=== PATIENT | male | born 1985 | race Caucasian/White ===

== ENCOUNTER 2019-07-26 01:45 | Emergency (ER) | payer MEDICAID, OTHER ==
[~2019-07-26] VITALS: Ht 177.8 cm; Wt 90.9 kg
[~2019-07-26 01:45] MED LIST: LIB25C PO
[2019-07-26 01:47] VITALS: BP 167/80
[2019-07-26] MEDS ORDERED: tetanus & diphtheria toxoid (Td) vaccine 0.5ml IMVAC ONE (02:05)
[2019-07-26] MEDS ORDERED: proparacaine 0.5% ophthalmic drops 15ml EACHEYE ONE (02:10)
[2019-07-26] MEDS ORDERED: gentamicin 0.3% ophthalmic drops 5ML RIGHTEYE ONE (02:10)
[2019-07-26] MEDS ORDERED: GENT5DRO4 RIGHTEYE (02:11)
== END 2019-07-26 02:35 ==
LOC: ER 01:45
DX: S01.81XA Laceration without foreign body of other part of head, initial encounter (principal); S05.71XA Avulsion of right eye, initial encounter; G89.29 Other chronic pain; F32.9 Major depressive disorder, single episode, unspecified; V89.2XXA Person injured in unspecified motor-vehicle accident, traffic, initial encounter; F12.90 Cannabis use, unspecified, uncomplicated; F41.9 Anxiety disorder, unspecified; Z56.0 Unemployment, unspecified; Z72.89 Other problems related to lifestyle; Y92.89 Other specified places as the place of occurrence of the external cause; Y99.8 Other external cause status; Y93.89 Activity, other specified
CPT/HCPCS: 99282; 99283

== ENCOUNTER 2019-07-29 08:59 | Emergency (ER) | payer OTHER ==
[~2019-07-29] VITALS: Ht 177.8 cm; Wt 90.9 kg
[~2019-07-29 08:59] MED LIST changes: +GENT5DRO4 RIGHTEYE
[2019-07-29] MEDS ORDERED: proparacaine 0.5% ophthalmic drops 15ml EACHEYE ONE (09:30)
[2019-07-29] MEDS ORDERED: TETanus/Pertussis (Acell)/Diphther VAC/PF (Tdap-Adult) 0.5ml syringe IMVAC ONE (09:40)
[2019-07-29 10:17] VITALS: BP 119/88
== END 2019-07-29 10:21 ==
LOC: ER 09:00
DX: S01.112D Laceration without foreign body of left eyelid and periocular area, subsequent encounter (principal); S05.02XD Injury of conjunctiva and corneal abrasion without foreign body, left eye, subsequent encounter; G89.29 Other chronic pain; F41.9 Anxiety disorder, unspecified; F32.9 Major depressive disorder, single episode, unspecified; F12.90 Cannabis use, unspecified, uncomplicated; F10.99 Alcohol use, unspecified with unspecified alcohol-induced disorder; Z60.2 Problems related to living alone; Z56.0 Unemployment, unspecified; Z79.899 Other long term (current) drug therapy; V87.7XXD Person injured in collision between other specified motor vehicles (traffic), subsequent encounter; Y90.9 Presence of alcohol in blood, level not specified
CPT/HCPCS: 90471; 99283

== ENCOUNTER 2022-09-09 17:35 | Emergency (ER) | payer MEDICAID ==
[~2022-09-09] VITALS: Ht 177.8 cm; Wt 80.0 kg
[2022-09-09 17:39] VITALS: BP 137/89
--- NOTE | 2022-09-09 17:48 | NUR ---
DANIEL CONTACTED - LOG #[id number]
== END 2022-09-09 20:12 | disposition left against medical advice (07) ==
LOC: ER 17:36
DX: M25.552 Pain in left hip (principal); Z53.21 Procedure and treatment not carried out due to patient leaving prior to being seen by health care provider